=== PATIENT | male | born 1985 | race African-American/Black ===

== ENCOUNTER 2017-06-24 20:41 | Emergency (ER) | payer SELFPAY ==
[2017-06-24 20:48] VITALS: BP 153/81; PULSE 75; TEMP 99.9; BMI 35.5
[2017-06-24] MEDS ORDERED: SODIUM CHLORIDE 1,000 ML IV STA (22:10)
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
[2017-06-24 22:43] LABS: URINE APPEARANCE CLEAR; URINE BILIRUBIN NEGATIVE (NEGATIVE); URINE BLOOD TRACE-LYSE (NEGATIVE); URINE COLOR LT. YELLOW; URINE GLUCOSE (UA) NEGATIVE (NEGATIVE); URINE KETONE NEGATIVE (NEGATIVE); URINE LEUK ESTERASE NEGATIVE (NEGATIVE); URINE NITRITE NEGATIVE (NEGATIVE); URINE PROTEIN NEGATIVE (NEGATIVE); URINE UROBILINOGEN 0.2 mg/dL (0.2-1.0)
[2017-06-24 22:44] LABS: BASOPHIL 0.3 % (0-2.0); EOSINOPHIL 1.7 % (0-4.5); MCH 29.8 pg (25.7-33.7); MCHC 33.9 g/dl (32.0-35.9); MEAN CELL VOLUME 87.9 fl (80-96); MEAN PLT VOLUME 8.3 fl (7.5-11.1); NEUTROPHILS 67.1 % (42.8-82.8); PLATELET COUNT 232 K/MM3 (134-434); RDW 13.1 % (11.9-15.9); WHITE BLOOD COUNT 6.6 K/mm3 (4.0-10.0)
[2017-06-24 23:26] LABS: TROPONIN I < 0.02 ng/ml (0.00-0.05)
[2017-06-24 23:27] LABS: CPK 1676 IU/L (39-308)
[2017-06-24 23:35] LABS: AMYLASE 69 U/L (25-115); GLUCOSE,RANDOM 89 mg/dL (74-106)
[2017-06-24 23:36] LABS: ANION GAP 9 (8-16); CALCIUM 8.9 mg/dL (8.5-10.1); CO2 27 mmol/L (21-32); CREATININE 1.3 mg/dL (0.7-1.3); TOT PROT 7.5 g/dl (6.4-8.2)
[2017-06-24 23:37] LABS: ALBUMIN 4.2 g/dl (3.4-5.0); ALK PHOS 85 U/L (45-117); BILIRUBIN,TOTAL 0.7 mg/dL (0.2-1.0); SGOT/AST 42 U/L (15-37); SGPT/ALT 53 U/L (12-78)
--- NOTE | 2017-06-25 11:34 | EKG ---
Test Reason : Blood Pressure : / mmHG Vent. Rate : 061 BPM Atrial Rate : 061 BPM P-R Int : 192 ms QRS Dur : 094 ms QT Int : 378 ms P-R-T Axes : 066 061 060 degrees QTc Int : 380 ms NORMAL SINUS RHYTHM WITH SINUS ARRHYTHMIA INCOMPLETE LEFT BUNDLE BRANCH BLOCK NONSPECIFIC T WAVE ABNORMALITY ABNORMAL ECG WHEN COMPARED WITH ECG OF 26-SEP-2016 06:18, NONSPECIFIC T WAVE ABNORMALITY NOW EVIDENT IN LATERAL LEADS REPEAT EKG IF CLINICALLY INDICATED Confirmed by PUNEET DEL RIO MD ([id number]) on 06/25/2017 11:33:58 AM Referred By: Confirmed By:PUNEET DEL RIO MD
== END 2017-06-25 01:55 | disposition home or self-care (01) ==
LOC: JER 20:41
PROC: 3E0337Z Introduction of Electrolytic and Water Balance Substance into Peripheral Vein, Percutaneous Approach (ICD-10-PCS; principal; 2017-06-24)
DX: R10.11 Right upper quadrant pain (principal); R94.4 Abnormal results of kidney function studies; F17.210 Nicotine dependence, cigarettes, uncomplicated
CPT/HCPCS: 36415; 76705-TC; 80053; 81003; 82150; 82553; 83690; 84484; 85025; 93005; 93010; 99281-25

== ENCOUNTER 2018-01-17 15:06 | Emergency (ER) | payer OTHER ==
[2018-01-17 15:23] VITALS: TEMP 98.2; BMI 34.8
--- NOTE | 2018-01-17 15:25 | PDOC ---
Rapid Medical Evaluation Time Seen by Provider: 01/17/18 15:19 Medical Evaluation: Allergies Allergy/AdvReac Type Severity Reaction Status Date / Time No Known Allergies Allergy Verified 01/17/18 15:19 01/17/18 15:21 Pt C/O: Left shoulder pain x 3 weeks Pt on brief exam:TTP over left ac joint,noted discomfort with front and lateral raise Pt ordered for : LEFT SHOULDER XRAY Pt to proceed to the ED Discharge Disposition - Diagnosis Left shoulder pain - Referrals - Patient Instructions - Post Discharge Activity
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
[2018-01-17 16:13] VITALS: BP 152/81; PULSE 62
== END 2018-01-17 16:26 | disposition home or self-care (01) ==
LOC: JERFT 15:06
DX: M13.812 Other specified arthritis, left shoulder (principal)
CPT/HCPCS: 73030-TC-LT-FY; 99281-25